=== PATIENT | male | born 2000 | race Caucasian/White ===

== ENCOUNTER 2021-07-28 17:33 | Inpatient (IN) | payer MEDICAID, OTHER ==
[~2021-07-28] VITALS: Ht 170.2 cm; Wt 80.0 kg
[2021-07-28] MEDS ORDERED: SODIUM CHLORIDE 0.9% 1,000 ML IV ONE (17:45)
[2021-07-28] MEDS ORDERED: ADENOSINE 3 MG/ML 2ML VIAL IV ONE ×2 (17:45)
[2021-07-28] MEDS ORDERED: DILTIAZEM HCL 5MG/ML 5ML VIAL IV ONE ×3 (18:00→18:06)
[2021-07-28] MEDS ORDERED: ONDANSETRON HCL 4MG/2ML INJ IV ONE (18:00)
[2021-07-28] MEDS ORDERED: ONDANSETRON HCL 4MG/2ML INJ ONE (18:11)
[2021-07-28 18:13] LABS: BASOPHILS % 0.2 % (0.0-2.0); EOSINOPHILS % 0.1 % (0.0-5.0); HEMOGLOBIN. 14.8 g/dL (14.0-18.0); LYMPHOCYTES % 10.4 % (20.0-50.0); MEAN CORPUSCULAR HEMOGLOBIN 28.8 pg (28.0-32.0); MEAN CORPUSCULAR VOLUME 85.4 fL (80.0-94.0); MEAN PLATELET VOLUME 9.4 fl (7.4-10.4); MONOCYTES % 6.7 % (2.0-8.0); NEUTROPHILS % 82.6 % (40.0-76.0); PLATELET 246 x1000/uL (130-400); RED BLOOD CELL COUNT 5.16 mill/uL (4.7-6.1); RED CELL DISTRIBUTION WIDTH 13.1 % (11.6-14.6)
[2021-07-28 18:29] LABS: CHLORIDE 105 mEq/L (98-107)
[2021-07-28 18:35] LABS: ETHANOL BLOOD < 10 mg/dL
[2021-07-28] MEDS ORDERED: ASPIRIN 81MG TABLET PO ONE (19:45)
[2021-07-28 19:56] LABS: CREATINE KINASE 223 IU/L (39-308)
[2021-07-28 22:14] VITALS: BP 110/73
[2021-07-28] MEDS ORDERED: ONDANSETRON HCL 4MG/2ML INJ IV PRN (23:15)
[2021-07-28] MEDS ORDERED: ACETAMINOPHEN 325MG TABLET PO PRN (23:15)
[2021-07-28] MEDS ORDERED: KETOROLAC 15MG/ML VIAL IV PRN (23:15)
[2021-07-28] MEDS ORDERED: NITROGLYCERIN 0.4MG TABLET SL SL PRN (23:15)
[2021-07-29] VITALS (8 sets, daily range): BP systolic 94–114; BP diastolic 57–73
[2021-07-29 05:58] LABS: BASOPHILS % 0.2 % (0.0-2.0); EOSINOPHILS % 0.7 % (0.0-5.0); HEMATOCRIT. 41.4 % (42.0-52.0); LYMPHOCYTES % 29.1 % (20.0-50.0); MEAN CORPUSCULAR HEMOGLOBIN 28.9 pg (28.0-32.0); MEAN CORPUSCULAR VOLUME 85.4 fL (80.0-94.0); MEAN PLATELET VOLUME 9.7 fl (7.4-10.4); MONOCYTES % 8.8 % (2.0-8.0); NEUTROPHILS % 61.2 % (40.0-76.0); PLATELET 211 x1000/uL (130-400); RED BLOOD CELL COUNT 4.85 mill/uL (4.7-6.1); RED CELL DISTRIBUTION WIDTH 13.2 % (11.6-14.6)
[2021-07-29 05:59] LABS: CHLORIDE 107 mEq/L (98-107)
[2021-07-29 06:11] LABS: LDL CHOLESTEROL 82 mg/dL (5-100)
[2021-07-29 06:13] LABS: HDL CHOLESTEROL 38 mg/dL (40-59)
[2021-07-29] MEDS: ASPIRIN 81MG TABLET PO SCH (08:47)
[2021-07-29 08:58] LABS: *BARBITURATES SCREEN URINE NEGATIVE (NEGATIVE); *BENZODIAZEPINES SCREEN URINE NEGATIVE (NEGATIVE); *COCAINE SCREEN URINE NEGATIVE (NEGATIVE)
[2021-07-29 08:59] LABS: *AMPHETAMINES SCREEN URINE NEGATIVE (NEGATIVE); CANNABINOID URINE SCREEN NEGATIVE (NEGATIVE); METHADONE URINE SCREEN NEGATIVE (NEGATIVE); OPIATES URINE SCREEN NEGATIVE (NEGATIVE); PHENCYCLIDINE URINE SCREEN NEGATIVE (NEGATIVE)
[2021-07-29] MEDS: SODIUM CHLORIDE 0.9% 1,000 ML IV SCH ×2 (12:23→23:15)
[2021-07-29] MEDS: ENOXAPARIN 80MG/0.8ML SYR SUBCUT SCH ×2 (12:23→21:17)
[2021-07-29 13:06] LABS: T4 FREE 0.88 ng/dL (0.76-1.46)
[2021-07-29] MEDS ORDERED: METOPROLOL TARTRATE 25MG TABLET PO NR (14:15)
[2021-07-29] MEDS: METOPROLOL TARTRATE 25MG TABLET PO SCH (21:00)
[2021-07-30] VITALS: BP 93/58
[2021-07-30 04:00] VITALS: BP 97/52
[2021-07-30 06:13] LABS: BASOPHILS % 0.5 % (0.0-2.0); EOSINOPHILS % 1.8 % (0.0-5.0); HEMATOCRIT. 42.8 % (42.0-52.0); HEMOGLOBIN. 14.6 g/dL (14.0-18.0); LYMPHOCYTES % 46.4 % (20.0-50.0); MEAN CORPUSCULAR HEMOGLOBIN 29.1 pg (28.0-32.0); MEAN CORPUSCULAR VOLUME 85.1 fL (80.0-94.0); MEAN PLATELET VOLUME 9.5 fl (7.4-10.4); MONOCYTES % 8.5 % (2.0-8.0); NEUTROPHILS % 42.8 % (40.0-76.0); PLATELET 187 x1000/uL (130-400); RED BLOOD CELL COUNT 5.03 mill/uL (4.7-6.1); RED CELL DISTRIBUTION WIDTH 13.2 % (11.6-14.6)
[2021-07-30 06:15] LABS: INR 1.1; PROTHROMBIN TIME 11.4 sec (9.6-11.0)
[2021-07-30 06:52] LABS: CHLORIDE 110 mEq/L (98-107)
[2021-07-30 06:58] LABS: LDL CHOLESTEROL 91 mg/dL (5-100)
[2021-07-30 06:59] LABS: HDL CHOLESTEROL 34 mg/dL (40-59)
[2021-07-30 08:00] VITALS: BP 104/62
[2021-07-30] MEDS: SODIUM CHLORIDE 0.9% 1,000 ML IV SCH ×2 (08:13→19:07)
[2021-07-30] MEDS: ASPIRIN 81MG TABLET PO SCH (08:39)
[2021-07-30] MEDS: ENOXAPARIN 80MG/0.8ML SYR SUBCUT SCH ×2 (08:39→21:17)
[2021-07-30] MEDS: METOPROLOL TARTRATE 25MG TABLET PO SCH ×2 (08:40→21:17)
[2021-07-30 12:00] VITALS: BP 119/67
[2021-07-30 16:00] VITALS: BP 109/70
[2021-07-30 20:00] VITALS: BP 109/70
[2021-07-31] VITALS: BP 103/63
[2021-07-31 04:00] VITALS: BP 99/51
[2021-07-31] MEDS: SODIUM CHLORIDE 0.9% 1,000 ML IV SCH (06:00)
[2021-07-31 08:14] VITALS: BP 91/56
[2021-07-31] MEDS: METOPROLOL TARTRATE 25MG TABLET PO SCH (09:00)
[2021-07-31] MEDS: ENOXAPARIN 80MG/0.8ML SYR SUBCUT SCH (09:01)
[2021-07-31] MEDS: ASPIRIN 81MG TABLET PO SCH (09:04)
[2021-07-31 11:24] VITALS: BP 118/67
== END 2021-07-31 12:00 | disposition home or self-care (01) | DRG 190 ==
LOC: ER 17:33 → 5EST 20:54 → ENRESERV 21:21
PROVIDERS: ADMIT Hospitalist; ATTEND Hospitalist
DX: I21.4 Non-ST elevation (NSTEMI) myocardial infarction (principal); I95.9 Hypotension, unspecified; I47.1 Supraventricular tachycardia; F17.200 Nicotine dependence, unspecified, uncomplicated; R74.01 Elevation of levels of liver transaminase levels; Z71.6 Tobacco abuse counseling; Z71.41 Alcohol abuse counseling and surveillance of alcoholic
CPT/HCPCS: 36415; 71045; 80048; 80053; 80061; 80305; 80320; 82550; 83735; 83880; 84439; 84443; 84484; 85025; 93005; 93306; 99291; J0153; J1650; J2405; J3490; J7030; G0480